=== PATIENT | male | born 1955 | race Caucasian/White ===

== ENCOUNTER 2022-10-10 08:15 | Emergency (ER) | payer MEDICARE, SELFPAY ==
[2022-10-10 08:33] VITALS: BP 127/77; PULSE 88; TEMP 36.8; O2SAT 95; BMI 25.1
--- NOTE | 2022-10-10 08:37 | XRR_ITS ---
PROCEDURE INFORMATION: Exam: XR Right Knee Exam date and time: 10/10/2022 8:57 AM Age: 67 years old Clinical indication: Injury or trauma; Other: Tree branch hit knee; Blunt trauma; Right; Additional info: Injury from tree TECHNIQUE: Imaging protocol: Radiologic exam of the right knee. Views: 3 views. AP [place] Lateral COMPARISON: No relevant prior studies available. FINDINGS: Bones/joints: There is normal alignment without fractures or dislocations. Tiny 3 compartment degenerative osteophytes are seen. Cjaj-ar-pzgizors patellofemoral compartment joint space narrowing is seen, suggestive of osteoarthritic change. There are no joint bodies. Medium to large sized anterior superior patellar degenerative osteophyte. Soft tissues: There is a medium-sized joint effusion. There are no radiopaque foreign bodies. There is mild knee region soft tissue swelling. Notes: If there is further concern, recommend follow-up radiographs or MRI for complete assessment. XR/XR knee RT 3V* [id number] IMPRESSION: No fractures or dislocation of the right knee. Medium to large sized knee joint effusion. Mild knee region soft tissue swelling.
--- NOTE | 2022-10-10 08:37 | ED_ITS ---
HPI - Extremity Injury (Lower) General: Chief Complaint: Extremity Injury, Lower Stated Complaint: Right leg injury Time Seen by Provider: 10/10/22 08:29 Source: patient Mode of arrival: wheelchair Limitations: no limitations History of Present Illness: 67-year-old male presents to the ER today for right knee pain and swelling for the last 12 hours. Patient reports yesterday afternoon he was up in a tree cutting it when the tree/limb rebounded and hit him across the right knee. Patient reports since then he has had severe pain and swelling. He also has abrasions to the right knee and right gutiérrez. Patient reports no prior knee injury to this knee. He has had significant difficulty with weightbearing as the pain is worsening and the knee feels like it is giving out on him. Patient reports he has not taken anything for pain at this time. Patient does have a history of hypertension and takes lisinopril along with hyperlipidemia. Review of Systems General: Reports: 10 or more systems reviewed and unremarkable except in HPI and below Physical Exam Const: COMMON NORMALS: average body habitus, patient oriented x3, no limitations, alert and well nourished Resp: COMMON NORMALS: normal respiratory effort, No retractions and clear to auscultation bilaterally AUSCULTATION: clear to auscultation bilaterally Cardio: COMMON NORMALS: regular rate, regular rhythm and No murmurs present (Cardio) RATE: regular rate RHYTHM: regular rhythm GI: COMMON NORMALS: Normal to inspection, nondistended, normoactive bowel sounds present, Soft to palpation and non-tender PALPATION: Yes Soft to palpation Extremity: NARRATIVE EXTREMITY EXAM: Patient is noted to have moderate to severe swelling of the right knee joint. Patient's pain is more inferior to patella. There is a noted abrasion and bruising to the right lower leg. Patient has pain with any movement or weightbearing. Neuro: COMMON NORMALS: patient oriented x3 SENSORIUM/ORIENTATION: Yes alert Psych: COMMON NORMALS: cooperative and normal affect Skin: NARRATIVE SKIN EXAM: Patient has abrasions to the right knee and gutiérrez. These are not actively bleeding at this time and no infection noted. Course ED course: Patient presents to the ER for right knee pain after a tree hit it yesterday. Patient was up in the tree cutting it when it rebounded and hit him. He reports severe pain and swelling since. Patient has not take anything for pain at this time. We will start with an x-ray given the swelling and tenderness to palpation. Vital Signs: Vital signs: Vital Signs Temperature 98.2 F 10/10/22 08:33 Pulse Rate 88 10/10/22 08:33 Blood Pressure 127/77 10/10/22 08:33 Pulse Oximetry 95 10/10/22 08:33 Oxygen Delivery Me thod Room Air 10/10/22 08:33 MDM - Extremity Injury (Lower) Medical Decision Making X-ray indicates a large joint effusion with a minimally displaced right fibular head fracture. Patiently placed in a straight leg knee brace and on crutches. Patient will be referred to orthopedics. Discussed with patient that he should remain nonweightbearing until follow-up. Patient given tramadol for the next couple of days. Okay to take ibuprofen also. Elevate leg to minimize swelling. Avoid prolonged use of ice along that lateral aspect to avoid peroneal nerve damage however ice would be okay on the medial portion of the knee. Return to the ER with new or worsening symptoms. Patient verbalized understanding and was in agreement with the treatment plan. Lab Data Radiology Impressions Knee X-Ray 10/10/22 08:37 IMPRESSION: No fractures or dislocation of the right knee. Medium to large sized knee joint effusion. Mild knee region soft tissue swelling. ADDENDUM: 10/10/22 1016 IMPRESSION: 1. No fractures or dislocation of the right femur or tibia. Minimally displaced right fibular head fracture. 2. Medium to large sized knee joint effusion. Mild knee region soft tissue swelling. Critical Care Time Critical Care Time: Critical Care Time: No Discharge Plan Discharge Patient Disposition: Home Clinical Impression: Fracture of fibula, proximal Qualifiers: Encounter type: initial encounter Fracture type: closed Fracture morphology: unspecified fracture morphology Laterality: right Qualified Code(s): S82.831A - Other fracture of upper and lower end of right fibula, initial encounter for closed fracture Condition: Stable Prescriptions: New tramadol 50 mg tablet 50 mg PO Q8H PRN (Reason: pain) 3 Days Qty: 9 0RF No Action lisinopril 40 mg tablet 40 mg PO DAILY Qty: 90 1RF atorvastatin 20 mg tablet 20 mg PO DAILY Qty: 90 1RF albuterol sulfate 90 mcg/actuation HFA aerosol inhaler 2 puff inhalation Q4H PRN (Reason: shortness of breath or wheezing) Qty: 8.5 3RF Anoro Ellipta 62.5-25 mcg/actuation blister with device 1 inh inhalation Q24H Qty: 60 3RF Discharge Orders: Discharge ED (Routine); Ordered 10/10/22 Ordered By: Fidelina Wyatt Referrals: Vangie Henley NP [Primary Care Provider] - Discharge Diet: Usual diet Discharge Activity: Limit activity as instructed Patient Instructions: Opioid Safety, Pain Management Activity Restrictions/Additional Instructions: Wear straight leg knee brace and remain nonweightbearing until you follow-up with orthopedics this week. Take Tylenol for pain. Okay to take ibuprofen also. Apply ice but avoid ice on the lateral aspect of the right knee. Do this a couple of times a day for approximately 15 minutes at a time. Keep elevated to minimize swelling. Return to the ER with new or worsening symptoms. Coding Level of Care Code ED [employer] Pul[employer] Operator for Brooklynn Heath
--- NOTE | 2022-10-10 13:30 | DCPLANNER ---
Addendum entered by Estella Billingsley 10/20/22 11:19: Patient had a follow up appointment scheduled with ortho - patient did attend appointment. Addendum entered by Estella Billingsley 10/18/22 10:01: Patient has a follow up appointment scheduled for Wednesday, October 19, [address]22 at 9:[address] Jeff at ortho. Original Note: garden center manager had message to schedule a follow up appointment for patient with ortho. garden center manager sent patients information to the front office staff at ortho. Patients information will be printed and reviewed. Clinic will call patient with appointment information.
== END 2022-10-10 10:38 | disposition home or self-care (01) ==
PROVIDERS: Emergency Provider Physician Assistant; PCP Nurse Practitioner Family
DX: S82.831A Other fracture of upper and lower end of right fibula, initial encounter for closed fracture (principal); M25.461 Effusion, right knee; W20.8XXA Other cause of strike by thrown, projected or falling object, initial encounter
CPT/HCPCS: 73562; 99283

== ENCOUNTER → 2022-10-19 08:50 | Outpatient (BNVA) | payer MEDICARE, SELFPAY | PROVIDERS: PCP Nurse Practitioner Family; Referring Provider Physician Assistant; Visit Provider Orthopaedic Surgery | DX: S82.831A Other fracture of upper and lower end of right fibula, initial encounter for closed fracture (principal); W20.8XXA Other cause of strike by thrown, projected or falling object, initial encounter | CPT/HCPCS: 99203 ==

== ENCOUNTER → 2023-03-22 10:54 | Outpatient (BNVA) | payer BC, MEDICARE, SELFPAY | PROVIDERS: PCP Nurse Practitioner Family; Visit Provider Family Medicine | DX: I10 Essential (primary) hypertension (principal); R35.1 Nocturia; L30.8 Other specified dermatitis | CPT/HCPCS: 80053; 80061; 82043; 84153; 85025 ==

== ENCOUNTER 2023-07-14 15:07 | Outpatient (CLI) | payer MEDICARE, SELFPAY ==
[2023-07-14] MEDS: iohexol 350 mg/mL 100 mL Btl PO (16:07)
--- NOTE | 2023-07-14 16:30 | CT_ITS ---
WS: [id number] CT ABDOMEN AND PELVIS WITH CONTRAST HISTORY: R10.9 - Unspecified abdominal pain TECHNIQUE: Imaging performed of the abdomen and pelvis with IV contrast. Single phase imaging of the abdomen. Coronal and sagittal reformats are submitted. All CT scans at [facility] use at [address] one of these dose optimization techniques: automated exposure control; mA and/or kV adjustment per patient size (includes targeted exams where dose is matched to clinical indication); or iterative re construction. IV CONTRAST: Omnipaque 350; 100 mL IV. Oral contrast: Yes. DLP: 423.23 mGy.cm COMPARISON: None available. Lower thorax: Lung bases are hyperinflated with emphysematous changes. Mild dependent changes. No mas s or nodule. Heart is normal size. No hiatal hernia. Liver/biliary system: Normal size with no intrahepatic dilatation. Gallbladder: Normal. No gallstones or wall thickening. No pericholecystic fluid. Pancreas: Normal size pancreas and pancreatic duct. No adjacent inflammation. Spleen: Normal size spleen. No mass or infarct. Adrenal glands: Normal. Right kidney: Normal size kidney with small central parapelvic cyst. Very mild cortical thinning. No obstruction or calcification. Left kidney: Normal size kidney. Hyperdense mass noted along the anterior lower pole LEFT kidney umer uring 1.5 x 1.7 cm does appear to enhance. There is a nonobstructing 3 mm calcification in the lower pole. Aorta: Mild atherosclerosis with no aneurysm. Small areas of calcified plaque in the mesenteric arter ies with no obstruction. Iliac arteries atherosclerosis. Lymphadenopathy: None. Free fluid: None. GI tract: Normally distended stomach. No small bowel obstruction. No wall thickening or stricture. Pr ior appendectomy. Mild increased fecal material throughout the colon. There are a few diverticula in the descending and sigmoid colon. No acute diverticulitis. Abdominal wall: Unremarkable abdominal wall. No hernia. Pelvis: Bilateral inguinal canals are patent containing fat only. Single 10 mm lymph node RIGHT ingui nal region just medial to the femoral artery and vein. There are a few additional small lymph nodes. Bones: Mild increase in lumbar lordosis. 3 mm anterolisthesis of L3 and L4. Advanced facet joint arth ritis in the mid to lower lumbar spine. Mild narrowing of the hip joints. IMPRESSION: 1. Enhancing solid mass anterior lower pole LEFT kidney measures 1.5 x 1.7 cm. Suspicious for solid mass such as renal cell neoplasm. Consider additional evaluation to confirm enhancement. Renal mass C T or MRI protocol recommended. 2. Mild distal colonic diverticulosis without acute diverticulitis. No GI tract obstruction. 3. Prior appendectomy. 4. Chronic emphysematous changes at the lung bases. 5. No ascites or adenopathy.
[2023-07-14 17:28] LABS: Blood Urea Nitrogen 20 mg/dL (8-23); Glomerular Filtration Rate 60.2 mL/min (90-130)
[2023-07-14] MEDS: iohexol 350 mg/mL 100 mL Btl IV (17:44)
== END 2023-07-14 15:08 | disposition home or self-care (01) ==
LOC: RAD 15:08
PROVIDERS: PCP Nurse Practitioner Family; Visit Provider Family Medicine
DX: K57.30 Diverticulosis of large intestine without perforation or abscess without bleeding (principal); N28.89 Other specified disorders of kidney and ureter; I10 Essential (primary) hypertension
CPT/HCPCS: 74177; 82565; 84520; Q9967

== ENCOUNTER → 2024-05-07 10:03 | Outpatient (BNVA) | payer MEDICARE, SELFPAY | PROVIDERS: PCP Nurse Practitioner Family; Visit Provider Nurse Practitioner Family | DX: I10 Essential (primary) hypertension (principal) | CPT/HCPCS: 80053; 80061 ==